=== PATIENT | male | born 1935 | race Caucasian/White ===

== ENCOUNTER → 2021-10-16 | Outpatient (CLI) | payer MEDICARE, OTHER ==
[~2021-10-16] MED LIST: AMARYL 2MG TABLE2 MG PO; ASPIRIN CHEWABL81 MG PO; ENULOSE10 GM/15 M PO; HYDRALAZINE HCL25 MG PO; JANUVIA100 MG PO; LOPRESSOR50 MG PO; NEURONTIN 100100 MG PO; NORCO PO; NORVASC10 MG PO; PLETAL 100 MG100 MG PO; TRENTAL 400 MG400 MG PO; XARELTO10 MG PO; ZOCOR20 MG PO
[2021-10-17 09:13] LABS: CREATININE, URINE 71.4 mg/dL (Not Estab.)
== END ==
LOC: LAB 09:10
PROVIDERS: Internal Medicine Nephrology
DX: N18.32 Chronic kidney disease, stage 3b (principal)
CPT/HCPCS: 36415; 80048; 82043; 82570; 84156